=== PATIENT | male | born 1960 | race Caucasian/White ===

== ENCOUNTER 2018-08-03 16:08 | Inpatient (IN) | payer MEDICAID, OTHER ==
[~2018-08-03] VITALS: Ht 165.1 cm; Wt 93.9 kg
[2018-08-03] MEDS ORDERED: LABETALOL 5MG/ML SYR 20 MG/4 ML SYRINGE IV ONE (17:45)
[2018-08-03] MEDS ORDERED: ONDANSETRON HCL 4MG/2ML INJ IV ONE (18:00)
[2018-08-03] MEDS ORDERED: MORPHINE SULFATE 4 MG/ML CPJ (NOT FOR IM USE) IV ONE ×2 (18:00→22:00)
[2018-08-03 18:05] LABS: CLARITY URINE CLEAR (CLEAR); COLOR URINE YELLOW (YELLOW); KETONES URINE NEGATIVE (NEGATIVE); LEUKOCYTE ESTERASE URINE NEGATIVE (NEGATIVE); NITRITE URINE NEGATIVE (NEGATIVE); OCCULT BLOOD URINE NEGATIVE (NEGATIVE); PH URINE 5.5 (4.5-8.0); PROTEIN URINE 1+ (NEGATIVE); SPECIFIC GRAVITY URINE 1.008 (1.005-1.030); UROBILINOGEN URINE 0.2 E.U./dL (0.2-1.0)
[2018-08-03 18:18] LABS: *AMPHETAMINES SCREEN URINE NEGATIVE (NEGATIVE); *BARBITURATES SCREEN URINE NEGATIVE (NEGATIVE); *BENZODIAZEPINES SCREEN URINE NEGATIVE (NEGATIVE); *COCAINE SCREEN URINE NEGATIVE (NEGATIVE); METHADONE URINE SCREEN NEGATIVE (NEGATIVE); OPIATES URINE SCREEN NEGATIVE (NEGATIVE)
[2018-08-03 18:19] LABS: CANNABINOID URINE SCREEN NEGATIVE (NEGATIVE); PHENCYCLIDINE URINE SCREEN NEGATIVE (NEGATIVE)
[2018-08-03 18:45] LABS: BASOPHILS % 0.4 % (0.0-2.0); EOSINOPHILS % 0.6 % (0.0-5.0); HEMATOCRIT. 40.3 % (42.0-52.0); HEMOGLOBIN. 13.7 g/dL (14.0-18.0); LYMPHOCYTES % 26.4 % (20.0-50.0); MEAN CORPUSCULAR HEMOGLOBIN 30.3 pg (28.0-32.0); MEAN CORPUSCULAR VOLUME 89.3 fL (80.0-94.0); MEAN PLATELET VOLUME 7.4 fl (7.4-10.4); MONOCYTES % 6.2 % (2.0-8.0); NEUTROPHILS % 66.4 % (40.0-76.0); PLATELET 272 x1000/uL (130-400); RED BLOOD CELL COUNT 4.51 mill/uL (4.7-6.1); RED CELL DISTRIBUTION WIDTH 15.1 % (11.6-14.6)
[2018-08-03 18:47] LABS: CHLORIDE 106 mEq/L (98-107)
[2018-08-03 18:52] LABS: ETHANOL BLOOD < 10 mg/dL
[2018-08-03 18:56] LABS: CREATINE KINASE 95 IU/L (39-308)
[2018-08-03 18:57] LABS: INR 1.2; PARTIAL THROMBOPLASTIN TIME 28.2 sec (23.4-31.0)
[2018-08-03] MEDS ORDERED: LORAZEPAM 2MG/ML CPJ IV ONE (20:30)
[2018-08-03] MEDS ORDERED: LABETALOL HCL 200 MG in DEXT 5% WATER 60 ML IV PRN ×2 (21:15→21:45)
[2018-08-03] MEDS ORDERED: LABETALOL HCL 20MG/4ML CARPUJECT IV ONE (21:15)
[2018-08-04] VITALS (10 sets, daily range): BP systolic 145–178; BP diastolic 80–99
[2018-08-04] MEDS ORDERED: MAGNESIUM/ALUMINUM HYDROXIDE/SIMETHICONE 30ML UDC PO PRN (10:30)
[2018-08-04] MEDS ORDERED: ONDANSETRON HCL 4MG/2ML INJ IV PRN (10:30)
[2018-08-04] MEDS ORDERED: HYDROCODONE/ACETAMINOPHEN 5/325MG TABLET PO PRN (10:30)
[2018-08-04] MEDS ORDERED: CLONIDINE 0.1MG TABLET PO PRN (10:30)
[2018-08-04] MEDS ORDERED: DOCUSATE SODIUM 100MG CAPSULE PO PRN (10:30)
[2018-08-04] MEDS ORDERED: ACETAMINOPHEN 325MG TABLET PO PRN (10:30)
[2018-08-04] MEDS ORDERED: IPRATROPIUM/ALBUTEROL 0.5-3(2.5)MG/3ML NEB INH PRN (10:30)
[2018-08-04] MEDS ORDERED: DIPHENHYDRAMINE 50MG/ML VIAL IV PRN (10:30)
[2018-08-04] MEDS ORDERED: GUAIFENESIN 200MG/10ML SUGAR FREE UDC PO PRN (10:30)
[2018-08-04] MEDS ORDERED: DEXTROSE 50% WATER 50ML SYRINGE IV PRN ×2 (12:15)
[2018-08-04] MEDS: BLOOD SUGAR DIAGNOSTIC STRIP TEST SCH ×3 (12:30→21:51)
[2018-08-04] MEDS: INSULIN LISPRO 100 UNITS/ML SUBCUT SCH ×3 (13:00→21:00)
[2018-08-04 13:06] LABS: PHOSPHORUS 3.1 mg/dL (2.5-4.9)
[2018-08-04 13:39] LABS: VITAMIN B12 SERUM 392 pg/mL (211-911)
[2018-08-04 13:42] LABS: FOLIC ACID (FOLATE) SERUM > 20.00 ng/mL (>5.38)
[2018-08-04 13:53] LABS: HEPATITIS B SURFACE ANTIGEN NEGATIVE
[2018-08-04 14:23] LABS: HEPATITIS A AB IGM NEGATIVE (NEGATIVE)
[2018-08-04] MEDS: NIFEDIPINE XL 30MG TAB PO SCH ×2 (16:01→21:50)
[2018-08-04] MEDS: AMLODIPINE 5MG TABLET PO SCH ×2 (16:42→21:51)
[2018-08-04] MEDS ORDERED: MAGNESIUM 1 G PREMIX 100 ML IV NR (17:30)
[2018-08-04 21:57] LABS: CREATINE KINASE 63 IU/L (39-308)
[2018-08-04 21:58] LABS: CREATINE KINASE MB FRACTION < 1.0 ng/mL (0.5-3.6)
[2018-08-05] VITALS (18 sets, daily range): BP systolic 113–171; BP diastolic 64–89
[2018-08-05 05:27] LABS: HIV SCREEN 4G Non Reactive (Non Reactive)
[2018-08-05 06:57] LABS: BASOPHILS % 0.4 % (0.0-2.0); EOSINOPHILS % 3.3 % (0.0-5.0); HEMATOCRIT. 41.6 % (42.0-52.0); HEMOGLOBIN. 14.1 g/dL (14.0-18.0); LYMPHOCYTES % 29.5 % (20.0-50.0); MEAN CORPUSCULAR HEMOGLOBIN 30.6 pg (28.0-32.0); MEAN CORPUSCULAR VOLUME 90.2 fL (80.0-94.0); MEAN PLATELET VOLUME 7.8 fl (7.4-10.4); MONOCYTES % 7.1 % (2.0-8.0); NEUTROPHILS % 59.7 % (40.0-76.0); PLATELET 266 x1000/uL (130-400); RED BLOOD CELL COUNT 4.61 mill/uL (4.7-6.1); RED CELL DISTRIBUTION WIDTH 14.4 % (11.6-14.6)
[2018-08-05 07:32] LABS: CHLORIDE 106 mEq/L (98-107)
[2018-08-05] MEDS: BLOOD SUGAR DIAGNOSTIC STRIP TEST SCH ×4 (07:48→20:58)
[2018-08-05 07:51] LABS: PHOSPHORUS 3.2 mg/dL (2.5-4.9)
[2018-08-05 07:52] LABS: LDL CHOLESTEROL 82 mg/dL (5-100)
[2018-08-05 07:53] LABS: HDL CHOLESTEROL 42 mg/dL (40-59)
[2018-08-05] MEDS: INSULIN LISPRO 100 UNITS/ML SUBCUT SCH ×4 (08:00→21:15)
[2018-08-05] MEDS: AMLODIPINE 5MG TABLET PO SCH (08:31)
[2018-08-05] MEDS: NIFEDIPINE XL 30MG TAB PO SCH (08:31)
[2018-08-05] MEDS: NIFEDIPINE XL 60MG TAB PO SCH (21:14)
[2018-08-06] VITALS (12 sets, daily range): BP systolic 119–146; BP diastolic 56–93
[2018-08-06 06:07] LABS: BASOPHILS % 0.2 % (0.0-2.0); EOSINOPHILS % 2.9 % (0.0-5.0); HEMATOCRIT. 38.6 % (42.0-52.0); HEMOGLOBIN. 12.9 g/dL (14.0-18.0); LYMPHOCYTES % 30.6 % (20.0-50.0); MEAN CORPUSCULAR HEMOGLOBIN 30.4 pg (28.0-32.0); MEAN PLATELET VOLUME 7.6 fl (7.4-10.4); MONOCYTES % 7.6 % (2.0-8.0); NEUTROPHILS % 58.7 % (40.0-76.0); PLATELET 259 x1000/uL (130-400); RED BLOOD CELL COUNT 4.24 mill/uL (4.7-6.1); RED CELL DISTRIBUTION WIDTH 14.6 % (11.6-14.6)
[2018-08-06 06:26] LABS: PHOSPHORUS 3.3 mg/dL (2.5-4.9)
[2018-08-06] MEDS: INSULIN LISPRO 100 UNITS/ML SUBCUT SCH ×2 (08:00→14:07)
[2018-08-06] MEDS: BLOOD SUGAR DIAGNOSTIC STRIP TEST SCH ×2 (08:23→12:20)
[2018-08-06] MEDS: NIFEDIPINE XL 60MG TAB PO SCH (09:08)
[2018-08-06] MEDS ORDERED: NIFE60TA64 PO (14:04)
== END 2018-08-06 18:16 | disposition home or self-care (01) | DRG 48 ==
LOC: ER 18:01 → 5EST 21:33 → EDBEDREQ 21:37 → EDBEDREQTM 21:37 → CANRESERV 08-04 03:08 → ENRESERV 08-04 03:08 → EDBEDREQSVC 08-04 07:21 → ENRESERV 08-04 08:31
PROVIDERS: ADMIT Internal Medicine; ATTEND Internal Medicine
DX: G90.8 Other disorders of autonomic nervous system (principal); E11.22 Type 2 diabetes mellitus with diabetic chronic kidney disease; N17.9 Acute kidney failure, unspecified; N18.3 Chronic kidney disease, stage 3 (moderate); E83.42 Hypomagnesemia; I16.0 Hypertensive urgency; D64.9 Anemia, unspecified; I12.9 Hypertensive chronic kidney disease with stage 1 through stage 4 chronic kidney disease, or unspecified chronic kidney disease; Z82.49 Family history of ischemic heart disease and other diseases of the circulatory system; Z83.3 Family history of diabetes mellitus; R80.9 Proteinuria, unspecified; Z79.4 Long term (current) use of insulin
CPT/HCPCS: 36415; 70551; 71045; 76770; 80048; 80061; 80305; 80320; 82140; 82550; 82553; 82570; 82607; 82746; 82962; 83036; 83735; 83880; 84100; 84156; 84443; 84484; 85379; 86705; 86709; 86803; 87340; 87389; 93005; 93306; 93880; 93970; 96374; 96375; 96376; 97162; 97165; 99291; J1815; J2270; J2405; J3475; J3490; G0480

== ENCOUNTER 2021-09-21 10:39 | Emergency (ER) | payer MEDICAID ==
[~2021-09-21] VITALS: Ht 154.9 cm; Wt 82.0 kg
[~2021-09-21 10:39] MED LIST: NIFE-32 PO
[2021-09-21 10:49] VITALS: BP 151/88
[2021-09-21 11:32] LABS: BASOPHILS % 0.4 % (0.0-2.0); EOSINOPHILS % 0.8 % (0.0-5.0); HEMATOCRIT. 34.2 % (42.0-52.0); HEMOGLOBIN. 11.8 g/dL (14.0-18.0); LYMPHOCYTES % 13.1 % (20.0-50.0); MEAN CORPUSCULAR VOLUME 87.1 fL (80.0-94.0); MONOCYTES % 7.1 % (2.0-8.0); NEUTROPHILS % 78.6 % (40.0-76.0); PLATELET 338 x1000/uL (130-400); RED BLOOD CELL COUNT 3.92 mill/uL (4.7-6.1); RED CELL DISTRIBUTION WIDTH 13.9 % (11.6-14.6)
[2021-09-21 11:47] LABS: CHLORIDE 97 mEq/L (98-107)
[2021-09-21 11:50] LABS: CLARITY URINE CLEAR (CLEAR); COLOR URINE YELLOW (YELLOW); KETONES URINE NEGATIVE (NEGATIVE); LEUKOCYTE ESTERASE URINE NEGATIVE (NEGATIVE); NITRITE URINE NEGATIVE (NEGATIVE); OCCULT BLOOD URINE NEGATIVE (NEGATIVE); PH URINE 6.5 (4.5-8.0); PROTEIN URINE 1+ (NEGATIVE); SPECIFIC GRAVITY URINE 1.007 (1.005-1.030); UROBILINOGEN URINE 0.2 E.U./dL (0.2-1.0)
[2021-09-21] MEDS ORDERED: SODIUM POLYSTYRENE SULFONATE 15 G/60 ML BOT PO ONE (12:00)
[2021-09-21] MEDS ORDERED: ALBUTEROL (0.083%) 2.5MG/3ML NEB HHN ONE (12:00)
[2021-09-21] MEDS ORDERED: SODI15OR5 PO (13:47)
== END 2021-09-21 15:42 | disposition home or self-care (01) ==
LOC: ER 11:42
DX: E87.6 Hypokalemia (principal); N28.9 Disorder of kidney and ureter, unspecified; E11.9 Type 2 diabetes mellitus without complications; I10 Essential (primary) hypertension; R06.02 Shortness of breath
CPT/HCPCS: 36415; 80048; 80053; 81003; 83690; 85025; 93005; 94640; 99284; Z7610

== ENCOUNTER 2022-03-04 14:00 | Emergency (ER) | payer MEDICAID ==
[~2022-03-04] VITALS: Ht 167.6 cm; Wt 75.0 kg
[~2022-03-04 14:00] MED LIST changes: +SODI15OR5 PO
[2022-03-04 14:10] VITALS: BP 201/95
== END 2022-03-04 21:57 | disposition left against medical advice (07) ==
LOC: ER 14:00
DX: Z53.21 Procedure and treatment not carried out due to patient leaving prior to being seen by health care provider (principal)